=== PATIENT | male | born 1945 | race Caucasian/White ===

== ENCOUNTER 2016-04-29 09:57 | Emergency (ER) | payer MEDICARE, OTHER ==
[~2016-04-29] VITALS: Wt 81.8 kg
[2016-04-29] MEDS ORDERED: ONDANSETRON 4 MG INJ IV STA (10:43)
[2016-04-29] MEDS ORDERED: SOD CHLORIDE 0.9% 1,000 ML IV STA (10:43)
[2016-04-29] MEDS ORDERED: ASPIRIN 325 MG TAB PO STA (10:43)
[2016-04-29] MEDS ORDERED: FAMOTIDINE 20 MG INJ IV STA (10:43)
[2016-04-29] MEDS ORDERED: morphine 4 MG/ML VIAL IV STA (10:43)
--- NOTE | 2016-04-29 11:14 | RADRPT ---
PROCEDURE: XR Chest. CLINICAL INDICATION: Chest pain TECHNIQUE: Chest AP portable COMPARISON: 05/21/2015 FINDINGS: The mediastinal structures are unremarkable. There is calcification of the thoracic aorta (consiste nt with atherosclerosis). The heart is normal in size and configuration. The pulmonary vascularity is normal. The lung doe are unremarkable. No consolidation is identified. The pleural spaces are unremarkable. The osseous structures are unremarkable. IMPRESSION: Calcification of the thoracic aorta (consistent with atherosclerosis). No evidence for active cardiopulmonary disease. RPTAT: [facility] .Chadwick Betancourt MD, MD Date Time Electronically viewed and signed by .Chadwick Betancourt MD, on 04/29/2016 11:14 .B/
[2016-04-29 11:38] LABS: BASOPHILS % 0.3 % (0.0-2.0); EOSINOPHILS # 0.1 10^3/ul (0.0-0.5); EOSINOPHILS % 1.6 % (0.0-7.0); HEMATOCRIT 40.7 % (42.0-52.0); HEMOGLOBIN 13.9 g/dl (14.0-18.0); LYMPHOCYTES # 1.2 10^3/ul (0.8-2.9); LYMPHOCYTES % 20.6 % (15.0-51.0); MEAN CORPUSCULAR HEMOGLOBIN 29.9 pg (29.0-33.0); MEAN CORPUSCULAR HGB CONC 34.2 g/dl (32.0-37.0); MEAN CORPUSCULAR VOLUME 87.4 fl (82.0-101.0); MEAN PLATELET VOLUME 10.5 fl (7.4-10.4); MONOCYTE # 0.3 10^3/ul (0.3-0.9); MONOCYTES % 5.1 % (0.0-11.0); NEUTROPHIL # 4.4 10^3/ul (1.6-7.5); NEUTROPHILS % 72.4 % (39.0-77.0); PLATELET COUNT 156 10^3/UL (140-440); RED BLOOD COUNT 4.66 10^6/ul (4.70-6.10)
[2016-04-29 11:40] LABS: CONDITION 1
[2016-04-29 11:50] LABS: POTASSIUM 4.5 mmol/L (3.5-5.1)
[2016-04-29 11:52] LABS: CREATININE 1.2 mg/dl (0.61-1.24)
[2016-04-29 11:53] LABS: ALBUMIN/GLOBULIN RATIO 1.37; CALCIUM 9.4 mg/dl (8.4-10.2); TOTAL PROTEIN 6.9 g/dl (6.1-8.1)
[2016-04-29 11:57] LABS: INR 0.93; PROTIME 12.5 Sec (12.2-14.2)
[2016-04-29 11:58] LABS: PARTIAL THROMBOPLASTIN TIME 34.5 Sec (25.0-35.0)
[2016-04-29 12:08] LABS: TROPONIN-I 0.357 ng/ml (0.00-0.12)
[2016-04-29] MEDS ORDERED: VALS160T20 PO (12:19)
[2016-04-29] MEDS ORDERED: HEPARIN 25000 UNITS/250 ML 250 ML IV STA (12:45)
[2016-04-29] MEDS ORDERED: NITROGLYCERIN 50 MG/D5W (PMX) 250 ML IV STA (12:45)
--- NOTE | 2016-04-29 12:57 | ERA ---
ER Documentation Chief Complaint Date/Time DATE: 04/29/16 TIME: 12:51 Chief Complaint INTERMITTENT CHEST PAIN SINCE LAST NIGHT. NO N/V. MILD SOB HPI Patient is a 70-year-old male who comes in complaining of epigastric pain radiating into the chest off and on since last night. He states when he presses on his abdomen that helps the chest discomfort. He says he has had a little mild shortness of breath with it as well. He denies any nausea, vomiting , fever, coughing, congestion, sore throat, otalgia, dizziness, diarrhea, dysuria, hematuria, flank, or back pain. Other than holding his abdomen nothing else seems to help the pain, nothing makes the pain worse. Nothing seems to cause the pain. He states he has never had this pain before. The remainder of the systems are negative. ROS All systems reviewed and are negative except as per history of present illness. Medications Home Meds Reported Medications Valsartan* (Diovan*) 160 Mg Tablet, 160 MG PO DAILY, TAB 04/29/16 Allergies Allergies: Coded Allergies: No Known Allergy (Unverified , 06/13/13) PMhx/Soc History of Surgery: No Anesthesia Reaction: No Hx Neurological Disorder: No Hx Respiratory Disorders: No Hx Cardiac Disorders: Yes (HTN Diovan) Hx Psychiatric Problems: No Hx Miscellaneous Medical Probl: No Hx Alcohol Use: No Hx Substance Use: No Hx Tobacco Use: No Smoking Status: Current every day smoker FmHx Family History: diabetes Physical Exam Vitals Vital Signs Date Time Temp Pulse Resp B/P Pulse Ox O2 Delivery O2 Flow Rate FiO2 04/29/16 13:51 97.9 54 18 132/71 100 Nasal Cannula 2.0 04/29/16 11:00 Nasal Cannula 2 04/29/16 10:08 98.4 49 22 163/77 99 Physical Exam Const: [] Well-developed well-nourished male sitting on the bed in no acute distress Head: Atraumatic normocephalic Eyes: Normal Conjunctiva ENT: Normal External Ears, Nose and Mouth. Neck: Full range of motion..~ No meningismus. Resp: Clear to auscultation bilaterally, no tenderness to palpation of the chest wall Cardio: Regular rate and rhythm, no murmurs Abd: Soft, non tender, non distended. Normal bowel sounds, no masses, rebound , or guarding Skin: No petechiae or rashes Back: No midline or flank tenderness Ext: No cyanosis, or edema, no calf tenderness to palpation Neur: Awake and alert oriented 3 with a GCS of 15 Psych: Normal Mood and Affect Result Diagram: 04/29/16 1106 04/29/16 1106 Results 24 hrs Laboratory Tests Test 04/29/16 11:06 Activated Partial Thromboplast Time 34.5Sec Alanine Aminotransferase (ALT/SGPT) 30IU/L Albumin 4.0g/dl Albumin/Globulin Ratio 1.37 Alkaline Phosphatase 47IU/L Anion Gap 16 Aspartate Amino Transf (AST/SGOT) 23IU/L Basophils # 0.010^3/ul Basophils % 0.3% Blood Morphology Comment Blood Urea Nitrogen 22mg/dl Calcium Level 9.4mg/dl Carbon Dioxide Level 26mmol/L Chloride Level 99mmol/L Creatinine 1.20mg/dl Direct Bilirubin 0.00mg/dl Eosinophils # 0.110^3/ul Eosinophils % 1.6% Globulin 2.90g/dl Glucose Level 281mg/dl Hematocrit 40.7% Hemoglobin 13.9g/dl INR International Normalized Ratio 0.93 Indirect Bilirubin 1.0mg/dl Lipase 117U/L Lymphocytes # 1.210^3/ul Lymphocytes % 20.6% Mean Corpuscular Hemoglobin 29.9pg Mean Corpuscular Hemoglobin Concent 34.2g/dl Mean Corpuscular Volume 87.4fl Mean Platelet Volume 10.5fl Monocytes # 0.310^3/ul Monocytes % 5.1% Neutrophils # 4.410^3/ul Neutrophils % 72.4% Nucleated Red Blood Cells # 0.010^3/ul Nucleated Red Blood Cells % 0.0/100WBC Platelet Count 76137^3/UL Potassium Level 4.5mmol/L Prothrombin Time 12.5Sec Prothrombin Time Ratio 1.0 Red Blood Count 4.6610^6/ul Red Cell Distribution Width 14.0% Sodium Level 136mmol/L Total Bilirubin 1.0mg/dl Total Protein 6.9g/dl Troponin I 0.357ng/ml White Blood Count 6.010^3/ul Current Medications Medications (Trade) Dose Ordered Sig/Tee Route PRN Reason Start Time Stop Time Status Last Admin Dose Admin Aspirin (Aspirin) 325 mg ONCE STAT PO 04/29/16 10:43 04/29/16 10:48 DC 04/29/16 10:54 Morphine Sulfate (morphine) 4 mg ONCE STAT IV 04/29/16 10:43 04/29/16 10:48 DC 04/29/16 10:55 Ondansetron HCl 4 mg 4 mg ONCE STAT IV 04/29/16 10:43 04/29/16 10:48 DC 04/29/16 10:54 Sodium Chloride (NS) 1,000 ml @ 1,000 mls/hr Q1H STAT IV 04/29/16 10:43 04/29/16 11:42 DC 04/29/16 10:55 Famotidine 20 mg 20 mg ONCE STAT IV 04/29/16 10:43 04/29/16 10:48 DC 04/29/16 10:54 Nitroglycerin/ Dextrose 250 ml @ 6 mls/hr ONCE STAT IV 04/29/16 12:45 05/01/16 06:24 Heparin Sodium (Porcine) (Heparin 90149 Units/250 ml) 250 ml @ 9.816 mls/ hr ONCE STAT IV 04/29/16 12:45 04/30/16 14:13 04/29/16 13:47 Eptifibatide 14.7 mg 14.7 mg BOLUS ONCE IV 04/29/16 13:00 04/29/16 13:03 DC Eptifibatide (Integrilin) 100 ml @ 2.454 mls/ hr Q24H IV 04/29/16 13:00 04/29/16 13:30 DC Procedures/MDM Differential includes chest pain, angina, non-STEMI, epigastric pain, pancreatitis, ulcer, reflux, nonspecific chest pain, nonspecific abdominal pain EKG shows sinus bradycardia at approximately 50 bpm with a right bundle branch block, lead III appears slightly abnormal otherwise no abnormalities noted on the EKG, no old EKGs available for comparison. Chest x-ray does not reveal any acute cardiopulmonary process 1255: At this time patient states his pain is improved. It was brought to my attention that the patient's troponin is elevated. I have ordered heparin and nitroglycerin, and Integrilin as the patient appears to be suffering from a non- STEMI. I have put out a call to the on-call reinforcing metal worker. 1330: I spoke with Dr. Diggs who advised to give the patient heparin IV. This has been ordered. At this time for some reason the patient is wanting to sign out AGAINST MEDICAL ADVICE. We have used a cobbler sole to speak with him at length. We have also spoken with his . Myself the cobbler sole and his had urged him to stay. We do not know at this time whether he is going to stay or not. He is however receiving heparin IV. 1400: I spoke with . She is aware of the patient in the emergency department. I will go ahead and put in bridge orders. It is still unclear whether the patient will stay or sign out AGAINST MEDICAL ADVICE. I once again urged the patient to stay. I certainly hope that he will. Departure Diagnosis: Primary Impression: Non-ST elevation (NSTEMI) myocardial infarction Additional Impression: Hypertension Qualified Code: I10 - Essential hypertension Condition: Kaia PALMAJOSE LUIS Apr 29, 2016 12:57
[2016-04-29] MEDS ORDERED: EPTIFIBATIDE 100 ML IV SCH (13:00)
[2016-04-29] MEDS ORDERED: EPTIFIBATIDE 20 MG INJ IV ONE (13:00)
[2016-04-29] MEDS ORDERED: ONDANSETRON 4 MG INJ IV PRN (14:30)
[2016-04-29] MEDS ORDERED: ACETAMINOPHEN 325 MG TAB PO PRN (14:30)
[2016-04-29 16:15] VITALS: BP 124/72; PULSE 42; RESP 19; TEMP 97.9
== END 2016-04-29 16:15 | disposition left against medical advice (07) ==
LOC: E/R 09:57
DX: I21.4 Non-ST elevation (NSTEMI) myocardial infarction (principal); I10 Essential (primary) hypertension; F17.210 Nicotine dependence, cigarettes, uncomplicated
CPT/HCPCS: 36415; 71010; 80053; 83690; 84484; 85025; 85610; 85730; 93005; 96374; 96375; 99285; J1327; J1644; J2270; J2405; J7030